=== PATIENT | male | born 1965 | race Caucasian/White ===

== ENCOUNTER 2018-01-12 07:40 | Observation (INO) ==
--- NOTE | 2018-01-12 08:02 | Emergency Department Note ---
Disposition Clinical Impression: Chest pain Qualifiers: Chest pain type: unspecified Qualified Code(s): R07.9 - Chest pain, unspecified Disposition: Admitted As Inpatient Condition: Fair Referrals: Tyrell Santiago MD [Primary Care Provider] - Forms: ED Satisfaction Letter Time of Disposition: 10:14 Chest Pain HPI - General Chief Complaint: ED Chest Pain Stated Complaint: " CP/sent by for lab work" Time Seen by Provider: 01/12/18 07:48 Source: patient Limitations: no limitations Vital Signs Reviewed: Yes Nursing Notes Reviewed: Yes - History of Present Illness HPI Narrative: Patient is a 52-year-old male who presents to [facility] ED with a chief complaint of chest pain. He was sent in by his primary care physician to be evaluated. States he has had one and a half weeks of intermittent chest ache that is substernal that lasts up to 5 minutes each time. It is worse with exertion. States he had an episode yesterday while walking up stairs in which it came on and he got very sweaty. States he felt like he was 89 coming down with something. Denies any cough or runny nose. No difficulty breathing. No problems with abdominal pain, urination or bowel movements. No recent fevers or chills. Denies any prior cardiac history. He does have a family history of his dad having ED. Past medical history significant for diabetes and hypertension. Pt complaint: chest pain Onset (ago): week(s) (1.5) Duration: intermittent Onset: during exertion Pain Location: substernal Severity: moderate Severity scale (1-10): 5 Quality: aching Pain Radiation: none Improves with: nothing Worsens with: exertion Associated symptoms: Reports: nausea. Denies: vomiting, dyspnea, fever, cough Treatments prior to arrival chest pain: none - Related Data Home Medications Medication Instructions Recorded Confirmed Aspirin [Lo-Dose Aspirin EC] 81 mg PO DAILY 01/12/18 01/12/18 Atenolol/Chlorthalidone [Tenoretic 1 tab PO DAILY 01/12/18 01/12/18 100 Tablet] Calcium Carbonate [Calcium] 500 mg PO DAILY 01/12/18 01/12/18 Esomeprazole Magnesium [Nexium] 40 mg PO DAILY 01/12/18 01/12/18 Losartan Potassium [Cozaar] 50 mg PO DAILY 01/12/18 01/12/18 Metformin HCl [Glucophage] 1,000 mg PO BID 01/12/18 01/12/18 Multivitamin [One Daily Essential] 1 tab PO DAILY 01/12/18 01/12/18 Naproxen [Naprosyn] 500 mg PO DAILY 01/12/18 01/12/18 Potassium Chloride [K-Tab ER] 20 meq PO DAILY 01/12/18 01/12/18 Psyllium Husk [Fiber] 6 cap PO BID 01/12/18 01/12/18 Testosterone Cypionate 200 mg IM Q21D 01/12/18 01/12/18 [Depo-Testosterone] Allergies Allergy/AdvReac Type Severity Reaction Status Date / Time Penicillins [PCN] Allergy See Verified 01/12/18 09:03 Comments Sulfa (Sulfonamide Allergy See Verified 01/12/18 09:03 Antibiotics) Comments clarithromycin [From Biaxin] AdvReac Diarrhea Verified 01/12/18 09:03 doxycycline AdvReac Diarrhea Verified 01/12/18 09:03 All systems ED: reviewed and negative except as stated. Chest Pain PMH - Past Medical History Medical history: Reports: diabetes, hypertension Surgical history: Reports: non-contributory Psychiatric history: Reports: no psych history - Social History Smoking Status: Never smoker Alcohol use: Reports: none Drug use: Reports: none Physical Exam - General Limitations: no limitations General appearance: alert, in no apparent distress, obese - Head Head exam: atraumatic, normocephalic, normal inspection - Eye Eye exam: Present: normal appearance, EOMI - ENT ENT exam: normal exam, normal oropharynx, mucous membranes moist - Neck Neck exam: Present: normal inspection, full ROM, trachea midline - Chest Chest inspection: Present: normal inspection, symmetric chest wall rise - Respiratory Respiratory exam: Present: normal lung sounds bilaterally - Cardiovascular Cardiovascular exam: Present: regular rate, normal rhythm, normal heart sounds - Abdominal Exam Abdominal exam: Present: soft, Non-Tender. Absent: tenderness, distention, guarding, rebound, rigidity - Extremities Exam Extremities exam: Present: normal inspection, full ROM. Absent: tenderness, pedal edema - Neurological Exam Neurological exam: Present: alert, oriented X3 - Psychiatric Psychiatric exam: Present: normal affect, normal mood - Skin Skin exam: Present: warm, dry, intact, normal color Course Course Narrative: Patient seen and examined. Chest pain worse with exertion that is intermittent. Concern for possible ACS/stable angina. Cardiopulmonary workup initiated. - Reevaluation(s) Reevaluation #1: Labwork unremarkable. EKG did show some T-wave inversion changes in lead aVF. Patient's patient's symptoms are concerning for angina, we will go ahead and admit for cardiac workup. I discussed with hospitalist Dr. Ovalle who has accepted patient for admission. I did order a dose of patient's home we will start 50 mg. 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 Time: 10:14 Vital Signs Temperature 97.8 F 01/12/18 07:41 Pulse Rate 85 01/12/18 07:41 Respiratory Rate 18 01/12/18 07:41 Blood Pressure 183/100 01/12/18 07:41 O2 Sat by Pulse Oximetry 98 01/12/18 07:41 Temperature 97.8 F 01/12/18 07:41 Pulse Rate 79 01/12/18 09:45 Respiratory Rate 18 01/12/18 09:45 Blood Pressure 154/74 01/12/18 09:45 O2 Sat by Pulse Oximetry 94 01/12/18 09:45 Oxygen Delivery Oxygen Delivery Room Air Chest Pain - Medical Records Medical records reviewed: Yes I reviewed the patient's medical records. - Lab Data Lab results reviewed: Yes I reviewed the patient's lab results. Result diagrams: 01/12/18 07:59 01/12/18 07:59 Lab Results 01/12/18 01/12/18 Range/Units 07:59 07:59 WBC 5.3 (4.3-11.1) K/mcL RBC 5.50 (4.19-5.50) M/mcL Hgb 14.9 (12.9-16.9) g/dL Hct 45.9 (37.5-50.1) % MCV 83.5 (83.0-100.0) fL MCH 27.1 L (28.0-33.3) pg MCHC 32.5 (31.6-35.5) g/dL RDW 13.9 (11.5-14.5) % Plt Count 325 (140-400) K/mcL MPV 10.1 (9.4-12.4) fL Immature Gran % 0.9 (0-4) % Seg Neutrophils % 60.1 % Lymphocytes % 26.4 % Monocytes % 8.1 % Eosinophils % 3.4 % Basophils % 1.1 % Neutrophils # 3.2 (1.6-8.9) K/mcL Lymphocytes # 1.4 (0.6-4.6) K/mcL Monocytes # 0.4 (0.0-1.3) K/mcL Eosinophils # 0.2 (0.0-0.6) K/mcL Basophils # 0.1 (0.0-0.2) K/mcL Sodium 138 (136-145) mEq/L Potassium 3.4 L (3.5-5.1) mEq/L Chloride 99 (98-107) mEq/L Carbon Dioxide 28 (23-29) mEq/L BUN 17 (6-20) mg/dL Creatinine 0.99 (0.70-1.30) mg/dL Est GFR ( Amer) > 60 (> 60) Est GFR (Non-Af Amer) > 60 (> 60) BUN/Creatinine Ratio 17 (6-26) Glucose 174 H (70-105) mg/dL Calculated Osmolality 292 (280-300) Calcium 10.2 (8.6-10.3) mg/dL Troponin I < 0.03 (< 0.04) ng/mL - Radiology Data Radiology results reviewed: Yes I reviewed the patient's radiology results. Chest X-Ray 01/12/18 07:49 IMPRESSION: No evidence of acute cardiopulmonary disease. D/ / Jarad Contreras MD / Jarad Contreras MD Interpreting Provider: Jarad Contreras MD - EKG Data EKG attestation: Yes I reviewed and interpreted this EKG. EKG results narrative: EKG done at 746 shows normal sinus rhythm with a rate of [address] elevation or ST depression. There are inverted T waves noted in leads 3 and aVF. The inversions in aVF do appear new from prior EKG done 10/15/2014. Heart Score - Score History: Moderately Suspicious EKG: Non Specific repolarisation Disturbance Age: 45-65 Risk Factors: 1-2 risk factors Troponin: Less than normal limit HEART Score Total: 4
--- NOTE | 2018-01-12 08:04 | Emergency Department Note ---
Disposition Clinical Impression: Chest pain Qualifiers: Chest pain type: precordial pain Qualified Code(s): R07.2 - Precordial pain Disposition: Admitted As Inpatient Condition: Fair General Adult HPI - General Chief complaint: ED Chest Pain Stated complaint: " CP/sent by for lab work" Time Seen by Provider: 01/12/18 07:48 Source: patient Limitations: no limitations - History of Present Illness Pain Scale: 0 - Related Data Home Medications Medication Instructions Recorded Confirmed Aspirin [Lo-Dose Aspirin EC] 81 mg PO DAILY 01/12/18 01/12/18 Atenolol/Chlorthalidone [Tenoretic 1 tab PO DAILY 01/12/18 01/12/18 100 Tablet] Calcium Carbonate [Calcium] 500 mg PO DAILY 01/12/18 01/12/18 Esomeprazole Magnesium [Nexium] 40 mg PO DAILY 01/12/18 01/12/18 Losartan Potassium [Cozaar] 50 mg PO DAILY 01/12/18 01/12/18 Metformin HCl [Glucophage] 1,000 mg PO BID 01/12/18 01/12/18 Multivitamin [One Daily Essential] 1 tab PO DAILY 01/12/18 01/12/18 Naproxen [Naprosyn] 500 mg PO DAILY 01/12/18 01/12/18 Potassium Chloride [K-Tab ER] 20 meq PO DAILY 01/12/18 01/12/18 Psyllium Husk [Fiber] 6 cap PO BID 01/12/18 01/12/18 Testosterone Cypionate 200 mg IM Q21D 01/12/18 01/12/18 [Depo-Testosterone] Allergies Allergy/AdvReac Type Severity Reaction Status Date / Time Penicillins [PCN] Allergy See Verified 01/12/18 09:03 Comments Sulfa (Sulfonamide Allergy See Verified 01/12/18 09:03 Antibiotics) Comments clarithromycin [From Biaxin] AdvReac Diarrhea Verified 01/12/18 09:03 doxycycline AdvReac Diarrhea Verified 01/12/18 09:03 Past Medical History - Past Medical History Medical history: Reports: diabetes, hypertension Surgical history: Reports: non-contributory Psychiatric history: Reports: no psych history - Social History Smoking Status: Never smoker Smokeless Tobacco Status: No Alcohol use: Reports: none Drug use: Reports: none Physical Exam - General Limitations: no limitations General appearance: alert, in no apparent distress Course Vital Signs Temperature 97.8 F 01/12/18 07:41 Pulse Rate 85 01/12/18 07:41 Respiratory Rate 18 01/12/18 07:41 Blood Pressure 183/100 01/12/18 07:41 O2 Sat by Pulse Oximetry 98 01/12/18 07:41 Temperature 98.1 F 01/12/18 13:55 Pulse Rate 83 01/12/18 13:55 Respiratory Rate 20 01/12/18 13:55 Blood Pressure 173/84 01/12/18 13:55 O2 Sat by Pulse Oximetry 96 01/12/18 13:55 Oxygen Delivery Oxygen Delivery Room Air Medical Decision Making - Lab Data Result diagrams: 01/12/18 07:59 01/12/18 07:59 Lab Results 01/12/18 01/12/18 Range/Units 07:59 07:59 WBC 5.3 (4.3-11.1) K/mcL RBC 5.50 (4.19-5.50) M/mcL Hgb 14.9 (12.9-16.9) g/dL Hct 45.9 (37.5-50.1) % MCV 83.5 (83.0-100.0) fL MCH 27.1 L (28.0-33.3) pg MCHC 32.5 (31.6-35.5) g/dL RDW 13.9 (11.5-14.5) % Plt Count 325 (140-400) K/mcL MPV 10.1 (9.4-12.4) fL Immature Gran % 0.9 (0-4) % Seg Neutrophils % 60.1 % Lymphocytes % 26.4 % Monocytes % 8.1 % Eosinophils % 3.4 % Basophils % 1.1 % Neutrophils # 3.2 (1.6-8.9) K/mcL Lymphocytes # 1.4 (0.6-4.6) K/mcL Monocytes # 0.4 (0.0-1.3) K/mcL Eosinophils # 0.2 (0.0-0.6) K/mcL Basophils # 0.1 (0.0-0.2) K/mcL Sodium 138 (136-145) mEq/L Potassium 3.4 L (3.5-5.1) mEq/L Chloride 99 (98-107) mEq/L Carbon Dioxide 28 (23-29) mEq/L BUN 17 (6-20) mg/dL Creatinine 0.99 (0.70-1.30) mg/dL Est GFR ( Amer) > 60 (> 60) Est GFR (Non-Af Amer) > 60 (> 60) BUN/Creatinine Ratio 17 (6-26) Glucose 174 H (70-105) mg/dL Calculated Osmolality 292 (280-300) Calcium 10.2 (8.6-10.3) mg/dL Troponin I < 0.03 (< 0.04) ng/mL Attestation Statement - Attestation Attestation: I examined this patient and my medical decision-making was reviewed with the SANDING SUPERVISOR/PA/Advanced Practice Nurse/Resident Physician. I agree with the documented findings, disposition and treatment plan as described except to the extent set forth below. I did review the patient's EKG showing normal sinus rhythm with a rate of 87 and it does appear to be a new T-wave inversion in lead aVF which is subtle however in conjunction with the patient's concerning story of exertional chest pain, dyspnea worsening since yesterday and a clammy feeling a cardiac evaluation is initiated. The patient will be admitted. At this point he is stable and bright and alert and well in appearance. He will be watched on the rn cardiac, chest x-ray. Does have a family history of heart failure. Nonsmoker [id number]
[2018-01-12 08:25] LABS: Basophils % 1.1 %; Eosinophils % 3.4 %; Hematocrit 45.9 % (37.5-50.1); Hemoglobin 14.9 g/dL (12.9-16.9); Immature Granulocytes % 0.9 % (0-4); Lymphocytes % 26.4 %; Mean Corpuscular HGB Conc 32.5 g/dL (31.6-35.5); Mean Corpuscular Hemoglobin 27.1 pg (28.0-33.3); Mean Corpuscular Volume 83.5 fL (83.0-100.0); Mean Platelet Volume 10.1 fL (9.4-12.4); Monocytes % 8.1 %; Platelet Count 325 K/mcL (140-400); Red Cell Distribution Width 13.9 % (11.5-14.5); Segmented Neutrophils % 60.1 %
[2018-01-12 08:26] LABS: Basophils # 0.1 K/mcL (0.0-0.2); Eosinophils # 0.2 K/mcL (0.0-0.6); Lymphocytes # 1.4 K/mcL (0.6-4.6); Monocytes # 0.4 K/mcL (0.0-1.3); Neutrophils # 3.2 K/mcL (1.6-8.9)
[2018-01-12 08:44] LABS: BUN/Creatinine Ratio 17 (6-26); Blood Urea Nitrogen 17 mg/dL (6-20); Calcium 10.2 mg/dL (8.6-10.3); Carbon Dioxide 28 mEq/L (23-29); Chloride 99 mEq/L (98-107); Glucose 174 mg/dL (70-105); Osmolality,Calculated 292 (280-300); Potassium 3.4 mEq/L (3.5-5.1); Sodium 138 mEq/L (136-145); eGFR For African Americans > 60 (> 60); eGFR For Non-African Americans > 60 (> 60)
[2018-01-12 08:45] LABS: Troponin I < 0.03 ng/mL (< 0.04)
[2018-01-12] MEDS ORDERED: Aspirin 81 MG TAB.CHEW PO ONE (11:25)
[2018-01-12] MEDS ORDERED: Naloxone 0.4 MG/ML INJ IVP PRN (12:34)
[2018-01-12] MEDS ORDERED: Potassium Chloride Elixir 20 MEQ/15 ML UDC PO ONE (12:36)
--- NOTE | 2018-01-12 12:42 | Cardiology Consult Note ---
<Joanne Grover L - Last Filed: 01/12/18 14:13> Date of Encounter: 01/12/18 Time of Encounter: 12:00 Assessment and Plan (1) Chest pain Current Visit: Yes Status: Acute Atypical chest pain symptoms. No significant ST/T wave changes on ECG. Hypertensive upon admission. Troponin negative x1. Continue to cycle troponin; if remain negative, recommend stress in AM. NPO after MN except medications. Qualifiers: Chest pain type: precordial pain Qualified Code(s): R07.2 - Precordial pain Discussion w patient/family: The assessment and plan as outlined above was discussed with the patient and/or family members who expressed understanding and agreement. All questions were answered. Thank you for involving us in the care of your patient. Please call with any questions. The patient will be discussed and reviewed with Dr. Xavier, changes to be made accordingly. History of Present Illness Consult date: 01/12/18 Requesting physician: Raquel Larsen Consult reason: CHest pain, ECG changes Chief complaint: Chest pain History of present illness: Mr. Delvalle is a 52 year old male with PMHx significant for obesity, DMII, HTN , HLD who presented to the ED with complaints of chest pain. He reports he was at his PCP (Dr. 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 He reports right and left-sided chest "ache" over the past several weeks. Pain is non- radiating, lasts only for a few moments, and is not related to activity or exertion. He reports it does tend to occur after eating. Reports "normal" LHC ~ 10 [address] ago here at [facility]. Troponin negative x1. No acute ST/T wave changes noted. Past Med Surg Social Fam HX - Past Medical History Attestation: Yes The following information was validated with the patient. Source: patient Medical history: diabetes, hypertension Psychiatric history: no psych history - Past Surgical History Surgical History: non-contributory - Social History Smoking Status: Never smoker Smokeless Tobacco Status: No Alcohol use: none Drug use: none Medications and Allergies Aspirin [Lo-Dose Aspirin EC] 81 mg PO DAILY 01/12/18 [History] Atenolol/Chlorthalidone [Tenoretic 100 Tablet] 1 tab PO DAILY 01/12/18 [History] Calcium Carbonate [Calcium] 500 mg PO DAILY 01/12/18 [History] Esomeprazole Magnesium [Nexium] 40 mg PO DAILY 01/12/18 [History] Losartan Potassium [Cozaar] 50 mg PO DAILY 01/12/18 [History] Metformin HCl [Glucophage] 1,000 mg PO BID 01/12/18 [History] Multivitamin [One Daily Essential] 1 tab PO DAILY 01/12/18 [History] Naproxen [Naprosyn] 500 mg PO DAILY 01/12/18 [History] Potassium Chloride [K-Tab ER] 20 meq PO DAILY 01/12/18 [History] Psyllium Husk [Fiber] 6 cap PO BID 01/12/18 [History] Testosterone Cypionate [Depo-Testosterone] 200 mg IM Q21D 01/12/18 [History] 3 Allergy/AdvReac Type Severity Reaction Status Date / Time Penicillins [PCN] Allergy See Verified 01/12/18 09:03 Comments Sulfa (Sulfonamide Allergy See Verified 01/12/18 09:03 Antibiotics) Comments clarithromycin [From Biaxin] AdvReac Diarrhea Verified 01/12/18 09:03 doxycycline AdvReac Diarrhea Verified 01/12/18 09:03 All Systems Review: The remainder of the systems were reviewed and are negative - Cardiovascular Cardiovascular: as per HPI Physical Examination General: Conversant, No Apparent Distress HEENT: Atraumatic, Normocephaly, Mucus Membranes Moist Neck: No JVD, Normal carotid pulses Cardiac: Reg Rate and Rhythm, Normal S1 and S2, No Murmur Lungs: Normal Breath Sounds, No Wheeze, Rales, Rhonchi Neuro: Alert and responsive, No focal deficits noted Abdomen: Soft, Non-Tender Skin: No rashes noted on visualized skin Musculoskeletal: No Chest Wall Tenderness Extremities: No Clubbing, No Cyanosis, No Edema, Normal Pulses Results 01/12/18 07:59 01/12/18 07:59 Active Medications Labetalol HCl (Labetalol) 5 mg IVP Q6HR PRN PRN Reason: Blood Pressure - High Stop: 07/14/18 12:52 Naloxone HCl (Narcan) 0.4 mg IVP Q2MIN PRN PRN Reason: SEE COMMENTS Stop: 07/14/18 12:35 - EKG Interpretation EKG results cardiology: personally reviewed Consult Discharge Plan - Plan Referrals: Tyrell Santiago MD [Primary Care Provider] - (Please call and schedule a hospital follow up first thing on Monday for 5-7 days out. Thank you!) <Samuel Xavier - Last Filed: 01/13/18 17:43> Date of Encounter: 01/12/18 Time of Encounter: 16:00 - Attending Attestation I have personally performed a face to face evaluation on this patient. I have reviewed and agree with the care plan. History and Exam by me shows: CC chest pain Pt reports was in his usual state of health four days ago when he experience chest pain, mid epigastric squeezing sensation, not like his usual heartburn, lasted three to five minutes, associated with mild nausea and diaphoresis. Pt reports he just stayed still and symptoms resolved. He was able to go back to work that evening, perform usual tasks without symptoms. Pt reported symptoms to primary care at routine office visit a day late, who recommeded pt go to ER. Pt did not, went to work overnight, then came to ER in AM. He is currently pain free. He reports similar episode approx 8 to 10 years ago, had overnight stay in hospital with heart catheterization that was reportedly normal. PMHx: reviewed PE: pt seen and examined, agree with findings above IMP/Plan: 1. Chest pain, unlcear etiology, has ruled out for myocardial necrosis so far, would recommend treadmill cardiolyte stress imaging before hospital discharge, order for AM 2. MOrbid obesity, discussed lifestyle changes Assessment and Plan Discussion w patient/family: The assessment and plan as outlined above was discussed with the patient and/or family members who expressed understanding and agreement. All questions were answered. Thank you for involving us in the care of your patient. Please call with any questions. History of Present Illness History of present illness: Mr. Delvalle is a 52 year old male All Systems Review: The remainder of the systems were reviewed and are negative Physical Examination Vital Signs, Last 4 Hours Temp Pulse Resp BP Pulse Ox 01/13/18 15:41 98.2 F 74 18 158/77 96 Results 01/13/18 00:33 01/13/18 00:33 Lab Results 01/12/18 01/13/18 01/13/18 18:22 00:33 00:33 WBC 4.7 Hgb 14.0 Hct 41.9 Plt Count 282 Sodium Potassium Chloride Carbon Dioxide BUN Creatinine Glucose Calcium Magnesium Total Bilirubin AST ALT Alkaline Phosphatase Troponin I < 0.03 < 0.03 01/13/18 00:33 WBC Hgb Hct Plt Count Sodium 138 Potassium 3.5 Chloride 102 Carbon Dioxide 27 BUN 14 Creatinine 0.88 Glucose 138 H Calcium 9.6 Magnesium 2.0 Total Bilirubin 0.5 AST 20 ALT 23 Alkaline Phosphatase 59 Troponin I
[2018-01-12] MEDS ORDERED: *HR* Labetalol 20 MG/4 ML SYRINGE IVP PRN (12:51)
--- NOTE | 2018-01-12 20:00 | Internal Med History&Physical ---
Date of Encounter: 01/12/18 Time of Encounter: 19:59 Internal Medicine - H&P: HPI Chief complaint: chest pain History of present illness: Mr. Delvalle is a 52 year old male history of diabetes was also complaint of chest pain. Patient notes he has had left-sided chest discomfort over the last 2 weeks. Patient notes that his chest discomfort can occur at rest or with exertion. Patient also notes dyspnea on exertion and increasing fatigue. Patient says history of hypertension for which she takes his medications on time. Patient denies any trauma to his chest. At this time in the emergency department patient denies chest pain. He currently denies shortness of breath at rest or palpitations. There is no headache visual disturbance or neck pain. He denies abdominal pain, nausea and vomiting. No history of cough, chills or fever. At this time patient voices no other complaints. Patient to be admitted for further evaluation. Past Med Surg Social Fam HX - Past Medical History Medical history: diabetes, hypertension Psychiatric history: no psych history - Past Surgical History Surgical History: non-contributory - Social History Smoking Status: Never smoker Smokeless Tobacco Status: No Alcohol use: none Drug use: none - Additional Family History Additional family history: Father history of CHF at age 71 Internal Medicine - H&P: Meds Aspirin [Lo-Dose Aspirin EC] 81 mg PO DAILY 01/12/18 [History] Atenolol/Chlorthalidone [Tenoretic 100 Tablet] 1 tab PO DAILY 01/12/18 [History] Calcium Carbonate [Calcium] 500 mg PO DAILY 01/12/18 [History] Esomeprazole Magnesium [Nexium] 40 mg PO DAILY 01/12/18 [History] Losartan Potassium [Cozaar] 50 mg PO DAILY 01/12/18 [History] Metformin HCl [Glucophage] 1,000 mg PO BID 01/12/18 [History] Multivitamin [One Daily Essential] 1 tab PO DAILY 01/12/18 [History] Naproxen [Naprosyn] 500 mg PO DAILY 01/12/18 [History] Potassium Chloride [K-Tab ER] 20 meq PO DAILY 01/12/18 [History] Psyllium Husk [Fiber] 6 cap PO BID 01/12/18 [History] Testosterone Cypionate [Depo-Testosterone] 200 mg IM Q21D 01/12/18 [History] 3 Allergy/AdvReac Type Severity Reaction Status Date / Time Penicillins [PCN] Allergy See Verified 01/12/18 09:03 Comments Sulfa (Sulfonamide Allergy See Verified 01/12/18 09:03 Antibiotics) Comments clarithromycin [From Biaxin] AdvReac Diarrhea Verified 01/12/18 09:03 doxycycline AdvReac Diarrhea Verified 01/12/18 09:03 All Systems PM: A 10-system review of systems was performed and is negative for pertinent findings except as documented above in the HPI. Review of systems: All systems have been reviewed and negative except for as mentioned in history of present illness - Constitutional Vitals: Temp Pulse Resp BP Pulse Ox 98.0 F 75 16 138/85 94 01/12/18 18:37 01/12/18 18:37 01/12/18 18:37 01/12/18 18:37 01/12/18 18:37 Vital signs as above Gen.: Alternative stress calm cooperative, able to speak in full sentences HEENT: Atraumatic, normocephalic, extraocular motors are intact, PERRL, there is no scleral icterus Neck: No JVD, pinna palpation, full range of motion Heart: Normal S1-S2 regular rate and rhythm Lungs: Clear to auscultation Abdomen: Soft, depressible nontender, nondistended, positive bowel sounds Musculoskeletal: Patient moves all 4 extremities freely, no pain palpation of large joints Psychiatric: Normal affect Skin: Intact no new rash Internal Med - H&P Results - Labs CBC & Chem 7: 01/12/18 07:59 01/12/18 07:59 Labs: Cardiac Enzymes 01/12/18 01/12/18 Range/Units 13:12 18:22 Troponin I < 0.03 < 0.03 (< 0.04) ng/mL - Assessment and plan (1) Chest pain Current Visit: Yes Status: Acute Assessment and plan: Patient has multiple risk factors for coronary artery disease, some typical characteristics At this time patient chest pain free. At this time no clinical evidence of pulmonary embolism or acute aortic pathology Cycle serial troponin, continues record maker, continue aspirin therapy Appreciate cardiology recommendations. Qualifiers: Chest pain type: precordial pain Qualified Code(s): R07.2 - Precordial pain (2) Diabetes Current Visit: Yes Status: Acute Assessment and plan: History of type 2 diabetes Hold metformin while in the hospital Insulin sliding scale, check hemoglobin A1c Qualifiers: Qualified Code(s): E11.9 - Type 2 diabetes mellitus without complications (3) Hypokalemia Current Visit: Yes Status: Acute Assessment and plan: replaced, recheck CMP (4) DVT prophylaxis Current Visit: Yes Status: Acute Assessment and plan: Heparin subcutaneous for VTE prophylaxis - Time Spent With Patient Total time spent is greater than 50% in coordination of care (as documented) at patient's floor/unit and/or counseling patient:
[2018-01-12] MEDS ORDERED: D5% in Water 1,000 ML IVC PRN (20:05)
[2018-01-12] MEDS ORDERED: Dextrose Gel 15 GM/37.5 ML TUBE PO PRN ×2 (20:05)
[2018-01-12] MEDS ORDERED: *HR* Dextrose 50 % in Water (Syg) 50 ML SYRINGE IVP PRN (20:05)
[2018-01-12 21:44] LABS: Estimated Average Glucose 157 mg/dl; Hemoglobin A1C 7.1 %
[2018-01-13 00:41] LABS: Basophils # 0.1 K/mcL (0.0-0.2); Basophils % 1.1 %; Eosinophils # 0.1 K/mcL (0.0-0.6); Eosinophils % 2.5 %; Hematocrit 41.9 % (37.5-50.1); Immature Granulocytes % 0.6 % (0-4); Lymphocytes # 1.2 K/mcL (0.6-4.6); Lymphocytes % 25.7 %; Mean Corpuscular HGB Conc 33.4 g/dL (31.6-35.5); Mean Corpuscular Hemoglobin 27.6 pg (28.0-33.3); Mean Corpuscular Volume 82.6 fL (83.0-100.0); Mean Platelet Volume 9.8 fL (9.4-12.4); Monocytes # 0.4 K/mcL (0.0-1.3); Monocytes % 8.1 %; Neutrophils # 2.9 K/mcL (1.6-8.9); Platelet Count 282 K/mcL (140-400); Red Blood Count 5.07 M/mcL (4.19-5.50); Red Cell Distribution Width 13.7 % (11.5-14.5)
[2018-01-13 01:06] LABS: Alanine Aminotransferase 23 Units/L (7-52); Albumin 4.2 g/dL (3.5-5.7); Albumin/Globulin Ratio 1.8 (1.1-2.2); Alkaline Phosphatase 59 Units/L (34-104); Aspartate Amino Transferase 20 Units/L (13-39); BUN/Creatinine Ratio 16 (6-26); Bilirubin,Total 0.5 mg/dL (0.3-1.0); Blood Urea Nitrogen 14 mg/dL (6-20); Calcium 9.6 mg/dL (8.6-10.3); Carbon Dioxide 27 mEq/L (23-29); Chloride 102 mEq/L (98-107); Chol/HDL Ratio 4.6 (0-4.9); Cholesterol 155 mg/dL (< 200); Globulin 2.3 g/dL (2.4-3.5); Glucose 138 mg/dL (70-105); HDL Cholesterol 34 mg/dL (40-59); LDL Cholesterol,Calculated 86 mg/dL (0-99); Osmolality,Calculated 289 (280-300); Potassium 3.5 mEq/L (3.5-5.1); Sodium 138 mEq/L (136-145); Total Protein 6.5 g/dL (6.4-8.9); Triglycerides 174 mg/dL (< 150); eGFR For African Americans > 60 (> 60); eGFR For Non-African Americans > 60 (> 60)
--- NOTE | 2018-01-13 07:13 | Electrocardiograph Report ---
[facility] ID Test Date: 2018-01-12 Pat Name: Delgado Delvalle Department: 104 Room: 2A25 Gender: M Dye Expert: : 1965 Requested By: Maurice Allen Order Number: [id number] Reading MD: Beth Smith Measurements Intervals [facility] Rate: 87 P: 5 MT: 145 QRS: -6 QRSD: 85 T: -15 QT: 361 QTc: 405 Interpretive Statements SINUS RHYTHM WITH OCCASIONAL ECTOPIC PREMATURE COMPLEXES VOLTAGE CRITERIA FOR LVH NONSPECIFIC T-WAVE ABNORMALITY Electronically Signed On 01-13-2018 7:11:24 EDT by Beth Smith
--- NOTE | 2018-01-13 09:04 | Discharge Summary ---
Orders not resulted at time of discharge: Pending orders 01/12/18 14:16 NM darcy perf SPECT multi [NM] Routine 01/12/18 19:55 Respiratory Infection Panel [MOLMIC] Routine 01/13/18 04:00 Urinalysis reflex Microscopic [URIN] AM 0400 01/13/18 08:00 SP exercise nuclear stress Routine Date of Encounter: 01/15/18 Time of Encounter: 09:03 - Discharge Diagnosis (1) Chest pain Priority: Primary Status: Acute Qualifiers: Chest pain type: precordial pain Qualified Code(s): R07.2 - Precordial pain (2) Diabetes Priority: Secondary Status: Acute (3) Hypokalemia Priority: Primary Status: Acute Hospital course: Mr. Delvalle is a 52 year old male history of diabetes was also complaint of chest pain. Patient notes he has had left-sided chest discomfort over the last 2 weeks. Patient noted that his chest discomfort can occur at rest or with exertion. Patient also noted dyspnea on exertion and increasing fatigue. He was sent to the ED by his primary care physician. EKG with no ST or T-wave abnormalities. Troponins were negative 3. He had a stress test done in the hospital which was unremarkable. He was noted to have PVCs and cardiology followed along and they changed his atenolol to Lopressor. He was discharged on 01/15. Unfortunately the patient was not very happy with his stay here as he ended up having to go through a 2 day stress test given his BMI. He ended up having the first part of the stress test on a Monday and the second part was not done until Monday has no stress tests could be done on a Monday. - Time Spent with Patient Total time spent providing and/or coordinating discharge services: - Discharge Medications Prescriptions: Chlorthalidone 25 mg PO DAILY #30 tablet Metoprolol [Lopressor] 50 mg PO BID #60 tablet Home Medications: Aspirin [Lo-Dose Aspirin EC] 81 mg PO DAILY 01/12/18 [History] Calcium Carbonate [Calcium] 500 mg PO DAILY 01/12/18 [History] Esomeprazole Magnesium [Nexium] 40 mg PO DAILY 01/12/18 [History] Losartan Potassium [Cozaar] 50 mg PO DAILY 01/12/18 [History] Metformin HCl [Glucophage] 1,000 mg PO BID 01/12/18 [History] Multivitamin [One Daily Essential] 1 tab PO DAILY 01/12/18 [History] Naproxen [Naprosyn] 500 mg PO DAILY 01/12/18 [History] Potassium Chloride [K-Tab ER] 20 meq PO DAILY 01/12/18 [History] Psyllium Husk [Fiber] 6 cap PO BID 01/12/18 [History] Testosterone Cypionate [Depo-Testosterone] 200 mg IM Q21D 01/12/18 [History] Chlorthalidone 25 mg PO DAILY #30 tablet 01/15/18 [Rx] Metoprolol [Lopressor] 50 mg PO BID #60 tablet 01/15/18 [Rx] Allergies/Adverse Reactions: 3 Allergy/AdvReac Type Severity Reaction Status Date / Time Penicillins [PCN] Allergy See Verified 01/12/18 09:03 Comments Sulfa (Sulfonamide Allergy See Verified 01/12/18 09:03 Antibiotics) Comments clarithromycin [From Biaxin] AdvReac Diarrhea Verified 01/12/18 09:03 doxycycline AdvReac Diarrhea Verified 01/12/18 09:03 Date of admission: 01/12/18 12:22 Primary care physician: Tyrell Santiago MD - Constitutional Vitals: Temp Pulse Resp BP Pulse Ox 98.1 F 81 18 147/86 93 01/13/18 08:15 01/13/18 08:15 01/13/18 08:15 01/13/18 08:15 01/13/18 08:15 Exam: GEN: NAD CVS: RRR. S1, S2, No m/r/g RESP: CTAB ABD: Soft, NT, ND, +BS EXT: No edema. 2+ DP. No rashes NEURO: Nonfocal - Patient Status Disposition: Home, Self-Care Condition: Fair Overall status at discharge: patient is progressing back to baseline - Discharge Instructions Instructions: Chest Pain (DC) Follow Up With: Tyrell Santiago MD [Primary Care Provider] - (Please call and schedule a hospital follow up first thing on Monday for 5-7 days out. Thank you! Office will call for an appt. ) - Diet and Activity Activity: increase activity as tolerated Diet: diabetic diet, low salt diet
--- NOTE | 2018-01-13 10:02 | Cardiology Progress Note ---
Date of Encounter: 01/13/18 Time of Encounter: 09:45 Assessment and Plan (1) Chest pain Current Visit: Yes Status: Acute Atypical chest pain symptoms. No significant ST/T wave changes on ECG. Hypertensive upon admission. Troponin negative x3. Exercise nuclear stress this AM, due to BMI, will be a 2-day study. Further recommendations to follow results. Qualifiers: Chest pain type: precordial pain Qualified Code(s): R07.2 - Precordial pain Discussion w patient/family: The assessment and plan as outlined above was discussed with the patient and/or family members who expressed understanding and agreement. All questions were answered. Thank you for involving us in the care of your patient. Please call with any questions. The patient will be discussed and reviewed with Dr. Xavier, changes to be made accordingly. Subjective Principal diagnosis: Chest pain Interval history: Seen and examined in stress lab today. No events overnight. Objective Vital Signs, Last 4 Hours Temp Pulse Resp BP Pulse Ox 01/13/18 08:15 98.1 F 81 18 147/86 93 General: Conversant, No Apparent Distress HEENT: Atraumatic, Normocephaly, Mucus Membranes Moist Cardiac: Reg Rate and Rhythm, Normal S1 and S2 Lungs: Normal Breath Sounds Neuro: Alert and responsive Abdomen: Soft Skin: No rashes noted on visualized skin Musculoskeletal: No Chest Wall Tenderness Extremities: No Edema, Normal Pulses Results 01/13/18 00:33 01/13/18 00:33 Lab Results 01/12/18 01/12/18 01/13/18 13:12 18:22 00:33 WBC Hgb Hct Plt Count Sodium Potassium Chloride Carbon Dioxide BUN Creatinine Glucose Calcium Magnesium Total Bilirubin AST ALT Alkaline Phosphatase Troponin I < 0.03 < 0.03 < 0.03 01/13/18 01/13/18 00:33 00:33 WBC 4.7 Hgb 14.0 Hct 41.9 Plt Count 282 Sodium 138 Potassium 3.5 Chloride 102 Carbon Dioxide 27 BUN 14 Creatinine 0.88 Glucose 138 H Calcium 9.6 Magnesium 2.0 Total Bilirubin 0.5 AST 20 ALT 23 Alkaline Phosphatase 59 Troponin I Active Medications Aspirin (Aspirin Ec) 81 mg PO DAILY [facility] Stop: 07/15/18 09:01 Calcium Carbonate (Tums) 500 mg PO DAILY [facility] Stop: 07/15/18 09:01 Dextrose/Water (Dextrose 50% (Syg)) 25 ml IVP AD PRN PRN Reason: Hypoglycemia Stop: 07/14/18 20:06 Glucagon (Glucagen) 1 mg IM ONCE PRN PRN Reason: Hypoglycemia Stop: 07/14/18 20:06 Glucose (Gluctose) 15 gm PO ONCE PRN PRN Reason: Hypoglycemia Stop: 07/14/18 20:06 Glucose (Gluctose) 30 gm PO ONCE PRN PRN Reason: Hypoglycemia Stop: 07/14/18 20:06 Dextrose (Dextrose 5%) 1,000 mls @ 100 mls/hr IVC .Q10H PRN PRN Reason: HYPOGLYCEMIA Stop: 07/14/18 20:06 Insulin Human Lispro (Humalog) 0 units SQ TIDAC [facility] PRN Reason: Protocol Stop: 07/15/18 07:31 Labetalol HCl (Labetalol) 5 mg IVP Q6HR PRN PRN Reason: Blood Pressure - High Stop: 07/14/18 12:52 Losartan Potassium (Cozaar) 50 mg PO DAILY [facility] Stop: 07/15/18 09:01 Multivitamins/Calcium (Thera M Plus) 1 tab PO DAILY [facility] Stop: 07/15/18 09:01 Naloxone HCl (Narcan) 0.4 mg IVP Q2MIN PRN PRN Reason: SEE COMMENTS Stop: 07/14/18 12:35 Omeprazole (Prilosec) 40 mg PO DAILY@0730 [facility] Stop: 07/15/18 07:31 Pharmacy Profile Note (Patient Taking Own Medication) 0 each PO DAILY [facility] Stop: 07/15/18 09:01 - Imaging and Cardiology Stress Test: pending - EKG Interpretation EKG results cardiology: personally reviewed Consult Discharge Plan - Plan Referrals: Tyrell Santiago MD [Primary Care Provider] -
[2018-01-13] MEDS: Insulin LISPRO 300 UNITS/3 ML VIAL SQ SCH ×3 (11:03→15:49)
[2018-01-13] MEDS: Multivit/Ca/Min/Fe/FA 1 TAB TABLET PO SCH (12:09)
[2018-01-13] MEDS: Aspirin Enteric Coated 81 MG Tablet PO SCH (12:10)
[2018-01-13] MEDS: ATENOLOL PO SCH (12:11)
[2018-01-13] MEDS: CHLORTHALIDONE PO SCH (12:11)
--- NOTE | 2018-01-13 12:14 | Internal Med Progress Note ---
Date of Encounter: 01/13/18 Time of Encounter: 12:12 - Assessment and plan (1) Chest pain Current Visit: Yes Status: Acute Assessment and plan: Patient has multiple risk factors for coronary artery disease, some typical characteristics of chest pain. Cardiology is following. Troponins are negative. EKG with no ST or T-wave changes. Stress test pending. He needs to do a stress test and unfortunately will have to stay until Monday to finish the second part. Qualifiers: Chest pain type: precordial pain Qualified Code(s): R07.2 - Precordial pain (2) Diabetes Current Visit: Yes Status: Acute Assessment and plan: A1c 7.1. Continue insulin sliding scale. Continue Accu-Cheks. Qualifiers: Qualified Code(s): E11.9 - Type 2 diabetes mellitus without complications (3) Hypokalemia Current Visit: Yes Status: Acute Assessment and plan: We will give 40 mEq. - Time Spent With Patient Total time spent is greater than 50% in coordination of care (as documented) at patient's floor/unit and/or counseling patient: - Subjective Interval history: Patient was seen and examined. No acute events. Admitted for chest pain rule out. - Constitutional Vitals: Temp Pulse Resp BP Pulse Ox 98.1 F 108 16 136/84 96 01/13/18 12:08 01/13/18 12:08 01/13/18 12:08 01/13/18 12:08 01/13/18 12:08 Exam: GEN: NAD CVS: RRR. S1, S2, No m/r/g RESP: CTAB ABD: Soft, NT, ND, +BS EXT: No edema. 2+ DP. No rashes NEURO: Nonfocal Internal Medicine: Result - Labs CBC & Chem 7: 01/13/18 00:33 01/13/18 00:33 Labs: Short CBC 01/13/18 Range/Units 00:33 WBC 4.7 (4.3-11.1) K/mcL Hgb 14.0 (12.9-16.9) g/dL Hct 41.9 (37.5-50.1) % Plt Count 282 (140-400) K/mcL Neutrophils # 2.9 (1.6-8.9) K/mcL BMP 01/13/18 00:33 Sodium 138 Potassium 3.5 Chloride 102 Carbon Dioxide 27 BUN 14 Creatinine 0.88 Glucose 138 H Calcium 9.6 Cardiac Enzymes 01/12/18 01/12/18 01/13/18 Range/Units 13:12 18:22 00:33 Troponin I < 0.03 < 0.03 < 0.03 (< 0.04) ng/mL Liver Function 01/13/18 Range/Units 00:33 Total Bilirubin 0.5 (0.3-1.0) mg/dL AST 20 (13-39) Units/L ALT 23 (7-52) Units/L Alkaline Phosphatase 59 (34-104) Units/L Albumin 4.2 (3.5-5.7) g/dL Consult Discharge Plan - Plan Referrals: Tyrell Santiago MD [Primary Care Provider] - (Please call and schedule a hospital follow up first thing on Monday for 5-7 days out. Thank you!)
[2018-01-13] MEDS ORDERED: *HR* LORazepam 2 MG/ML VIAL IVP ONE (23:57)
[2018-01-14] MEDS: Melatonin 3 MG TABLET PO PRN (00:15)
[2018-01-14] MEDS: ATENOLOL PO SCH (08:15)
[2018-01-14] MEDS: CHLORTHALIDONE PO SCH (08:15)
[2018-01-14] MEDS: Multivit/Ca/Min/Fe/FA 1 TAB TABLET PO SCH (08:19)
[2018-01-14] MEDS: Aspirin Enteric Coated 81 MG Tablet PO SCH (08:19)
[2018-01-14] MEDS: Insulin LISPRO 300 UNITS/3 ML VIAL SQ SCH ×3 (08:20→17:16)
--- NOTE | 2018-01-14 09:04 | Internal Med Progress Note ---
Date of Encounter: 01/14/18 Time of Encounter: 09:02 - Assessment and plan (1) Chest pain Current Visit: Yes Status: Acute Assessment and plan: Patient has multiple risk factors for coronary artery disease, some typical characteristics of chest pain. Cardiology is following. Troponins are negative. EKG with no ST or T-wave changes. 2 part stress test to finish tomorrow. Qualifiers: Chest pain type: precordial pain Qualified Code(s): R07.2 - Precordial pain (2) PVC (premature ventricular contraction) Current Visit: Yes Status: Acute Assessment and plan: check K and mag (3) Diabetes Current Visit: Yes Status: Acute Assessment and plan: A1c 7.1. Continue insulin sliding scale. Continue Accu-Cheks. (4) Hypokalemia Current Visit: Yes Status: Acute Assessment and plan: Repleted - Time Spent With Patient Total time spent is greater than 50% in coordination of care (as documented) at patient's floor/unit and/or counseling patient: - Subjective Interval history: Patient was seen and examined. No acute events. PVCs on tele. Admitted for chest pain rule out. Underwent first part of stress test yesterday. Needs part 2 tomorrow. No CP. - Constitutional Vitals: Temp Pulse Resp BP Pulse Ox 97.4 F L 86 17 165/97 96 01/14/18 07:40 01/14/18 07:40 01/14/18 07:40 01/14/18 07:40 01/14/18 07:40 Exam: GEN: NAD CVS: RRR. S1, S2, No m/r/g RESP: CTAB ABD: Soft, NT, ND, +BS EXT: No edema. 2+ DP. No rashes NEURO: Nonfocal Internal Medicine: Result - Labs CBC & Chem 7: 01/13/18 00:33 01/14/18 09:33 Consult Discharge Plan - Plan Referrals: Tyrell Santiago MD [Primary Care Provider] - (Please call and schedule a hospital follow up first thing on Monday for 5-7 days out. Thank you!)
--- NOTE | 2018-01-14 12:31 | Cardiology Progress Note ---
Date of Encounter: 01/14/18 Time of Encounter: 12:00 Assessment and Plan (1) Chest pain Current Visit: Yes Status: Acute Atypical chest pain symptoms. No significant ST/T wave changes on ECG. Hypertensive upon admission. Troponin negative x3. Exercise nuclear stress pending due to BMI, will be a 2-day study. Further recommendations to follow. Qualifiers: Chest pain type: precordial pain Qualified Code(s): R07.2 - Precordial pain (2) PVC (premature ventricular contraction) Current Visit: Yes Status: Acute PVCs noted during stress test and on telemetry review. Symptoms may correlate to ectopy. Will d/c atenolol and trial lopressor 50 mg BID. Discussed with patient, he is agreeable. Discussion w patient/family: The assessment and plan as outlined above was discussed with the patient and/or family members who expressed understanding and agreement. All questions were answered. Thank you for involving us in the care of your patient. Please call with any questions. The patient will be discussed and reviewed with Dr. Xavier, changes to be made accordingly. Subjective Principal diagnosis: Chest pain Interval history: Seen and examined. Reports intermittent "quick" episodes of chest discomfort, describes as palpitations. No events overnight. Objective Vital Signs, Last 4 Hours Temp Pulse Resp BP Pulse Ox 01/14/18 11:42 97.9 F 87 17 141/88 96 General: Conversant, No Apparent Distress HEENT: Atraumatic, Normocephaly, Mucus Membranes Moist Cardiac: Reg Rate and Rhythm, Normal S1 and S2 Lungs: Normal Breath Sounds Neuro: Alert and responsive Abdomen: Soft Skin: No rashes noted on visualized skin Musculoskeletal: No Chest Wall Tenderness Extremities: No Edema, Normal Pulses Results 01/13/18 00:33 01/14/18 09:33 Lab Results 01/14/18 01/14/18 09:33 09:33 Potassium 3.6 Magnesium 2.0 - Imaging and Cardiology Echo: report reviewed Other Results: 12hour tele: avg HR=84 SR - EKG Interpretation EKG results cardiology: personally reviewed Consult Discharge Plan - Plan Referrals: Tyrell Santiago MD [Primary Care Provider] - (Please call and schedule a hospital follow up first thing on Monday for 5-7 days out. Thank you!)
[2018-01-14] MEDS: *HR* Heparin 5,000 UNIT/ML VIAL SQ SCH ×2 (15:14→21:07)
[2018-01-15] MEDS: Melatonin 3 MG TABLET PO PRN (00:44)
[2018-01-15] MEDS: *HR* Heparin 5,000 UNIT/ML VIAL SQ SCH (08:46)
[2018-01-15] MEDS: Insulin LISPRO 300 UNITS/3 ML VIAL SQ SCH ×2 (08:47→12:05)
[2018-01-15] MEDS: Multivit/Ca/Min/Fe/FA 1 TAB TABLET PO SCH (08:48)
[2018-01-15] MEDS: Aspirin Enteric Coated 81 MG Tablet PO SCH (08:48)
[2018-01-15 10:31] LABS: Potassium 3.8 mEq/L (3.5-5.1)
[2018-01-15 10:44] LABS: Thyroid Stimulating Hormone 1.339 mcIU/mL (0.340-5.600)
--- NOTE | 2018-01-15 10:47 | Cardiology Progress Note ---
Date of Encounter: 01/15/18 Time of Encounter: 10:40 Assessment and Plan (1) Chest pain Current Visit: Yes Status: Acute Atypical chest pain symptoms. No significant ST/T wave changes on ECG. Hypertensive upon admission. Troponin negative x3. Reviewed stress test with Dr. Echeverria; negative for ischemia. No further recommendations from CV standpoint, recommend close f/u with PCP. Risk factor modification emphasized. Qualifiers: Chest pain type: precordial pain Qualified Code(s): R07.2 - Precordial pain (2) PVC (premature ventricular contraction) Current Visit: Yes Status: Acute PVCs noted during stress test and on telemetry review. Symptoms may correlate to ectopy. Overnight, ectopy improved with lopressor. Recommend continuation in the outpatient setting. Discussion w patient/family: The assessment and plan as outlined above was discussed with the patient and/or family members who expressed understanding and agreement. All questions were answered. Thank you for involving us in the care of your patient. Please call with any questions. The patient will be discussed and reviewed with Dr. Sadler; Cardiology will sign- off, please call with questions. Subjective Principal diagnosis: Chest pain Interval history: Seen and examined. Denies chest pain/discomfort. No reported events overnight. Objective Vital Signs, Last 4 Hours Temp Pulse Resp BP Pulse Ox 01/15/18 07:45 97.9 F 64 16 137/86 97 01/15/18 07:41 95 General: Conversant, No Apparent Distress HEENT: Atraumatic, Normocephaly, Mucus Membranes Moist Cardiac: Reg Rate and Rhythm, Normal S1 and S2 Lungs: Normal Breath Sounds Neuro: Alert and responsive Abdomen: Soft Skin: No rashes noted on visualized skin Musculoskeletal: No Chest Wall Tenderness Extremities: No Edema, Normal Pulses Results 01/13/18 00:33 01/15/18 09:47 Lab Results 01/15/18 09:47 Potassium 3.8 Magnesium 2.0 TSH 1.339 Active Medications Aspirin (Aspirin Ec) 81 mg PO DAILY [facility] Stop: 07/15/18 09:01 Last Admin: 01/15/18 08:48 Dose: 81 mg Calcium Carbonate (Tums) 500 mg PO DAILY [facility] Stop: 07/15/18 09:01 Last Admin: 01/15/18 08:47 Dose: 500 mg Dextrose/Water (Dextrose 50% (Syg)) 25 ml IVP AD PRN PRN Reason: Hypoglycemia Stop: 07/14/18 20:06 Glucagon (Glucagen) 1 mg IM ONCE PRN PRN Reason: Hypoglycemia Stop: 07/14/18 20:06 Glucose (Gluctose) 15 gm PO ONCE PRN PRN Reason: Hypoglycemia Stop: 07/14/18 20:06 Glucose (Gluctose) 30 gm PO ONCE PRN PRN Reason: Hypoglycemia Stop: 07/14/18 20:06 Heparin Sodium (Porcine) (Heparin) 5,000 unit SQ Q8HCO [facility] Stop: 07/16/18 14:01 Last Admin: 01/15/18 08:46 Dose: Not Given Dextrose (Dextrose 5%) 1,000 mls @ 100 mls/hr IVC .Q10H PRN PRN Reason: HYPOGLYCEMIA Stop: 07/14/18 20:06 Insulin Human Lispro (Humalog) 0 units SQ TIDAC [facility] PRN Reason: Protocol Stop: 07/15/18 07:31 Last Admin: 01/15/18 08:47 Dose: 2 units Insulin Human Lispro (Humalog) 0 units SQ HS [facility] PRN Reason: Protocol Stop: 07/17/18 21:01 Labetalol HCl (Labetalol) 5 mg IVP Q6HR PRN PRN Reason: Blood Pressure - High Stop: 07/14/18 12:52 Losartan Potassium (Cozaar) 50 mg PO DAILY [facility] Stop: 07/15/18 09:01 Last Admin: 01/15/18 08:48 Dose: 50 mg Melatonin (Melatonin) 3 mg PO HS PRN PRN Reason: Insomnia Stop: 07/15/18 23:58 Last Admin: 01/15/18 00:44 Dose: 3 mg Metoprolol Tartrate (Lopressor) 50 mg PO BID [facility] Stop: 07/16/18 21:01 Last Admin: 01/15/18 08:48 Dose: 50 mg Multivitamins/Calcium (Thera M Plus) 1 tab PO DAILY [facility] Stop: 07/15/18 09:01 Last Admin: 01/15/18 08:48 Dose: 1 tab Naloxone HCl (Narcan) 0.4 mg IVP Q2MIN PRN PRN Reason: SEE COMMENTS Stop: 07/14/18 12:35 Naproxen (Naprosyn) 500 mg PO DAILY [facility] PRN Reason: Protocol Stop: 07/15/18 13:46 Last Admin: 01/15/18 08:48 Dose: 500 mg Omeprazole (Prilosec) 40 mg PO DAILY@0730 [facility] Stop: 07/15/18 07:31 Last Admin: 01/15/18 08:48 Dose: 40 mg - Imaging and Cardiology Stress Test: report reviewed Other Results: 12 hour tele: avg HR=64 SR. PACs noted. - EKG Interpretation EKG results cardiology: personally reviewed Consult Discharge Plan - Plan Referrals: Tyrell Santiago MD [Primary Care Provider] - (Please call and schedule a hospital follow up first thing on Monday for 5-7 days out. Thank you!)
[2018-01-15 10:54] VITALS: BP 145/90
[2018-01-15] MEDS ORDERED: Insulin LISPRO 300 UNITS/3 ML VIAL SQ SCH (21:00)
== END 2018-01-15 12:49 | disposition home or self-care (01) ==
LOC: 2ANU 07:40 → EMEROO 07:40 → 2ANU 13:09
PROVIDERS: ADMIT Internal Medicine; ATTEND Internal Medicine